=== PATIENT | female | born 1950 | race Caucasian/White ===

== ENCOUNTER 2021-08-12 07:09 | Day surgery (SDC) | payer MEDICARE ==
[2021-08-12] MEDS ORDERED: Midazolam 1 MG/ML 2 ML SDV ONE (07:59)
[2021-08-12] MEDS ORDERED: Propofol 200 MG/20 ML SDV ONE (07:59)
[2021-08-12] MEDS ORDERED: fentaNYL 100 MCG/2 ML SDV ONE (07:59)
[2021-08-12] MEDS ORDERED: Dextrose 5%-Lactated Ringers 1,000 ML IV SCH (08:13)
[2021-08-12 11:48] VITALS: BP 137/68; PULSE 52
--- NOTE | 2021-08-13 08:55 | OR ---
DATE OF PROCEDURE: 08/12/2021 SURGEON: Rajiv Shukla MD PREOPERATIVE DIAGNOSIS: History of colon polyps. POSTOPERATIVE DIAGNOSES: 1. No recurrent polyps or other signs of neoplasia. 2. Limited left colonic diverticulosis. OPERATIVE PROCEDURE: Flexible colonoscopy. ANESTHESIA: IV sedation. INDICATION FOR PROCEDURE: This is a 70-year-old female presenting with indication for followup screening colonoscopy. She does have history of colon polyps with last colonoscopy being 3 years ago. Plan is to proceed with a colonoscopy with biopsies and a polypectomy as indicated. Potential risks including bleeding and perforation were discussed and the patient wishes to proceed. DETAILS OF PROCEDURE: The patient was taken to the operating room and placed in a left lateral decubitus position. IV sedation was administered after which a digital rectal exam was performed and was unremarkable. Colonoscope was then passed in the rectum with retroflexion revealing uncomplicated hemorrhoidal columns. Scope was eventually passed to the level of cecum. The prep was fairly good. There was a small amount of liquid stool, which might obscure quite small polyps. Otherwise, there was some left colonic diverticulosis, which was uncomplicated. No recurrent polyps or other signs of neoplasia were identified. Scope was then withdrawn, the above findings reconfirmed, and the procedure concluded. The patient was taken to the recovery room in satisfactory condition. Recommendation would be to repeat the colonoscopy in 5 years. Rajiv Shukla MD /[id number]
== END 2021-08-12 12:05 | disposition home or self-care (01) ==
LOC: JP.SDS 07:09
PROVIDERS: ATTEND Surgery
DX: Z12.11 Encounter for screening for malignant neoplasm of colon (principal); K57.30 Diverticulosis of large intestine without perforation or abscess without bleeding; K64.9 Unspecified hemorrhoids; E03.9 Hypothyroidism, unspecified; E66.9 Obesity, unspecified; Z88.0 Allergy status to penicillin; Z86.010 Personal history of colon polyps
CPT/HCPCS: G0105; J2250; J2704; J3010; J7121